=== PATIENT | female | born 1980 | race Caucasian/White ===

== ENCOUNTER 2017-02-13 05:31 | Emergency (ER) | payer BC ==
[2017-02-13 05:57] VITALS: BP 124/87
[2017-02-13] MEDS ORDERED: Tetan/Diph/Pertus SYR(Tdap)* 0.5 ML SYR(BOOSTRIX) use SYR IM ONE (06:00)
--- NOTE | 2017-02-13 06:37 | ED ---
Roxann Blackwell Rebecca, scribed for Ochoa Ritchie MD on 02/13/17 at 0617 . Upper Extremity Pain - HPI Summary HPI Summary: Pt is a 36 y/o F who presents to ED c/o R middle finger pain. Pt reports that at the end of November (approximately 2 months ago) she was folding a stick in half and it had a long thorn protruding from it. When she bent the stick, the thorn pierced about [facility] into the middle joint of the middle finger. Immediately after, the finger was painful, swollen and warm to touch which lasted for 2 days. At that time, the sx completely resolved. Since that time, sx of pain and swelling have continued to intermittently return. Currently, pain is mild, ranked 2/10. Sx aggravated by extension, alleviated by nothing. - History of Current Complaint Chief Complaint: EDExtremityUpper Stated Complaint: FINGER INJURY Time Seen by Provider: 02/13/17 06:00 Hx Obtained From: Patient Mechanism Of Injury: Other - Pierced with a thorn Onset/Duration: Started Weeks Ago - 2 months ago, Traumatic, Still Present Timing: Intermittent Severity Currently: Mild Pain Location: Finger - Right middle finger Aggravating Factor(s): Extension Alleviating Factor(s): Nothing Associated Signs & Symptoms: Positive: Swelling Related History: Similar Episode/Dx As - Intermittent chronc pain for 2 months - Allergies/Home Medications Allergies/Adverse Reactions: Allergies Allergy/AdvReac Type Severity Reaction Status Date / Time No Known Allergies Allergy Verified 03/09/14 16:41 PMH/Surg Hx/FS Hx/Imm Hx Previously Healthy: Yes Endocrine/Hematology History: Denies: Hx Diabetes Cardiovascular History: Denies: Hx Hypertension - Surgical History Surgery Procedure, Year, and Place: denies any surgeries to neck, or ears. Infectious Disease History: No Infectious Disease History: Denies: Traveled Outside the [place] in Last 30 Days - Family History Known Family History: Negative: Diabetes - Social History Alcohol Use: None Substance Use Type: Reports: None Smoking Status (MU): Never Smoked Tobacco Review of Systems Positive: Arthralgia - R middle finger pain and swelling Positive: Other - R middle finger warm to touch (resolved) All Other Systems Reviewed And Are Negative: Yes Physical Exam - Summary Physical Exam Summary: General: well-appearing, no pain distress Skin: warm, color reflects adequate perfusion, dry Head: normal Eyes: EOMI, NELSON ENT: normal Neck: supple, nontender Respiratory: CTA, breath sounds present Cardiovascular: RRR Abdomen: soft, nontender Bowel: present Musculoskeletal: strength/ROM intact, the 3rd digit on the R hand is swollen and not hot to touch with no erythema and good capillary refill Neurological: normal, sensory/motor intact, A&O x3 Psychological: affect/mood appropriate Triage Information Reviewed: Yes Vital Signs On Initial Exam: Initial Vitals Temp Pulse Resp BP Pulse Ox 99.4 F 88 15 124/87 99 02/13/17 05:41 02/13/17 05:41 02/13/17 05:41 02/13/17 05:41 02/13/17 05:41 Vital Signs Reviewed: Yes Diagnostics - Vital Signs Vital Signs Temp Pulse Resp BP Pulse Ox 02/13/17 05:41 99.4 F 88 15 124/87 99 - Laboratory Lab Statement: Any lab studies that have been ordered have been reviewed, and results considered in the medical decision making process. Course/Dx - Course Course Of Treatment: TDAP GIVEN IN ED. RX AUGMENTIN. F/U ORTHO/HANDS. Assessment/Plan: Patient medications reviewed. Elevated BP noted and advised follow up. - Diagnoses Provider Diagnoses: Swelling of finger joint of left hand Discharge - Discharge Plan Condition: Stable Disposition: HOME Prescriptions: Amoxicillin/Clavulanate TAB* [Augmentin TAB 875*] 875 mg PO BID #20 tab Patient Education Materials: Swollen Joint (ED) Referrals: [facility] [Outside] Ankita Walker MD [Medical Doctor] - Chu Snell MD [Medical Doctor] - Additional Instructions: FOLLOW UP WITH ORTHOPEDICS. RETURN TO THE EMERGENCY DEPARTMENT FOR ANY WORSENING OF YOUR CONDITION OR QUESTIONS OR CONCERNS. The documentation as recorded by the Roxann garcia Rebecca accurately reflects the service I personally performed and the decisions made by me, Ochoa Ritchie MD.
--- NOTE | 2017-02-13 07:19 | RAD ---
INDICATION: Pain and swelling of the third digit after being struck by a thorn 8 weeks earlier TECHNIQUE: 4 views of the right middle finger were obtained. FINDINGS: The bones are normal alignment. Joint spaces appear maintained. No fracture is seen. No subcutaneous foreign body is identified IMPRESSION: NORMAL RADIOGRAPHIC SERIES OF THE RIGHT MIDDLE FINGER WITHOUT IDENTIFICATION OF SUBCUTANEOUS FOREIGN BODY.
== END 2017-02-13 06:40 | disposition home or self-care (01) ==
LOC: ED 05:31
DX: M79.89 Other specified soft tissue disorders (principal)
CPT/HCPCS: 73140; 90471; 90715; 99282